=== PATIENT | female | born 1985 ===

== ENCOUNTER 2023-04-28 17:06 | Emergency (ER) | payer MEDICAID ==
[~2023-04-28] VITALS: Ht 165.1 cm; Wt 72.1 kg
[2023-04-28 17:12] VITALS: O2SAT 99
[2023-04-28] MEDS ORDERED: PRED10TA MT (17:41)
[2023-04-28] MEDS ORDERED: CEPH500C2 MT (17:41)
[2023-04-28] MEDS ORDERED: SULF1TAB48 MT (17:41)
[2023-04-28] MEDS ORDERED: HYDROCODONE/ACETAMINOPHEN 5/325MG TABLET PO ONE (17:45)
[2023-04-28] MEDS ORDERED: KETOROLAC 60MG/2ML VIAL IM ONE (17:45)
[2023-04-28 18:59] VITALS: BP 118/72; PULSE 99; RESP 16; TEMP 98.2
== END 2023-04-28 19:00 | disposition home or self-care (01) ==
LOC: ER 17:06
DX: L73.2 Hidradenitis suppurativa (principal)
CPT/HCPCS: 96372; 99283; J1885; Z7610